=== PATIENT | male | born 1945 | race Caucasian/White ===

== ENCOUNTER 2017-05-27 06:55 | Day surgery (SDC) | payer MEDICARE, BC ==
[~2017-05-27 06:55] MED LIST: Lactated Ringers 1,000 ML IV SCH; Lidocaine 1%/Sod Bicarbonate in NS 8.4% 1 ML Syringe IV PRN; Sodium Chloride 0.9% 10 ML Syringe FLUSH PRN
[2017-05-27] MEDS ORDERED: Cyclobenzaprine 10 MG Tab PO PRN (06:59)
[2017-05-27] MEDS ORDERED: Sennosides 8.6 MG Tab PO PRN (06:59)
[2017-05-27] MEDS ORDERED: Magnesium Hydroxide 400 MG/5 ML Susp 30 ML Cup PO PRN (06:59)
[2017-05-27] MEDS ORDERED: diphenhydrAMINE 50 MG/ML SDV IVPUSH PRN (06:59)
[2017-05-27] MEDS ORDERED: Ondansetron 4 MG/2 ML SDV IVPUSH PRN ×2 (06:59→10:12)
[2017-05-27] MEDS ORDERED: Naloxone 0.4 MG/ML SDV IVPUSH PRN (06:59)
[2017-05-27] MEDS ORDERED: Morphine 2 MG/ML Syringe IVPUSH PRN (06:59)
[2017-05-27] MEDS ORDERED: Bisacodyl 5 MG Tab PO PRN (06:59)
[2017-05-27] MEDS ORDERED: ceFAZolin 1 GM Vial ONE (07:17)
[2017-05-27] MEDS ORDERED: Propofol 200 MG/20 ML SDV ONE (07:17)
[2017-05-27] MEDS ORDERED: Midazolam 1 MG/ML 2 ML SDV ONE (07:17)
[2017-05-27] MEDS ORDERED: fentaNYL 100 MCG/2 ML SDV ONE (07:17)
[2017-05-27] MEDS ORDERED: Morphine PF 1 MG/ML Amp ONE (07:47)
--- NOTE | 2017-05-27 07:52 | PCM.PREANE ---
Preanesthetic Assessment - Anesthesia/Transfusion/Family Hx Anesthesia History: Prior Anesthesia Without Reaction Family History of Anesthesia Reaction: No Transfusion History: No Prior Transfusion(s) - Review of Systems General: No Symptoms Pulmonary: No Symptoms, Other (smokeless tobacco) Cardiovascular: No Symptoms Gastrointestinal: No Symptoms Neurological: Tingling (tingling in hands on occassion) Other: Reports: None - Physical Assessment NPO Status Date: 05/26/17 NPO Status Time: 18:00 Pulse: 56 O2 Sat by Pulse Oximetry: 98 Respiratory Rate: 16 Blood Pressure: 143/86 Temperature: 36.7 C Height: 1.8 m ASA Class: 2 Mental Status: Alert & Oriented x3 Airway Class: Mallampati = 2 Dentition: Reports: Broken Tooth/Teeth Thyro-Mental Finger Breadths: 3 Mouth Opening Finger Breadths: 3 ROM/Head Extension: Full Lungs: Clear to Auscultation, Normal Respiratory Effort Cardiovascular: Regular Rate, Regular Rhythm - Lab Values: Laboratory Last Values MRSA (PCR) Negative 05/08/17 14:00 - Allergies Allergies/Adverse Reactions: Allergies Allergy/AdvReac Type Severity Reaction Status Date / Time No Known Allergies Allergy Verified 05/24/17 11:11 - Blood Blood Available: No Product(s) Available: None - Anesthesia Plan Pre-Op Medication Ordered: None - Acknowledgements Anesthesia Type Planned: Spinal, MAC Pt an Appropriate Candidate for the Planned Anesthesia: Yes Alternatives and Risks of Anesthesia Discussed w Pt/Guardian: Yes Pt/Guardian Understands and Agrees with Anesthesia Plan: Yes PreAnesthesia Questionnaire HEENT History: Reports: Impaired Vision Cardiovascular History: Reports: None Respiratory History: Reports: None Gastrointestinal History: Reports: None Genitourinary History: Reports: None MAPPER History: Reports: None Other Musculoskeletal History: Pelvis FX. Dislocated elbow at age 11 Neurological History: Reports: None Psychiatric History: Reports: None Endocrine/Metabolic History: Reports: None Hematologic History: Reports: None Immunologic History: Reports: None Oncologic (Cancer) History: Reports: None Dermatologic History: Reports: None - Infectious Disease History Infectious Disease History: Reports: None - Past Surgical History Head Surgeries/Procedures: Reports: None HEENT Surgical History: Reports: None Cardiovascular Surgical History: Reports: None Respiratory Surgical History: Reports: None GI Surgical History: Reports: Hernia, Inguinal Female Surgical History: Reports: None Male Surgical History: Reports: None Endocrine Surgical History: Reports: None Neurological Surgical History: Reports: None Musculoskeletal Surgical History: Reports: Hip Replacement Other Musculoskeletal Surgeries/Procedures:: bilateral hip replacements Oncologic Surgical History: Reports: None Dermatological Surgical History: Reports: None - SUBSTANCE USE Smoking Status *Q: Current Every Day Smoker Tobacco Use Within Last Twelve Months: Snuff/Dip Second Hand Smoke Exposure: No Days Per Week of Alcohol Use: 0 Recreational Drug Use History: No - HOME MEDS Home Medications: Home Meds . [No Known Home Meds] 07/22/15 [History] - CURRENT (IN HOUSE) MEDS Current Meds: Current Medications Aspirin (Ecotrin) 325 mg PO BID [facility] Bisacodyl (Dulcolax) 5 mg PO DAILY PRN PRN Reason: Constipation Morphine Sulfate 8 mg/Epinephrine HCl 0.3 mg/Cefuroxime Sodium 750 mg/Ketorolac Tromethamine 30 mg/Sodium Chloride 27.9 ml 0 mg .XX ONETIME ONE Stop: 05/27/17 09:31 Cyclobenzaprine HCl (Flexeril) 10 mg PO TID PRN PRN Reason: Spasms Diphenhydramine HCl (Benadryl) 25 mg IVPUSH Q4H PRN PRN Reason: Nausea Docusate Sodium (Colace) 100 mg PO BID [facility] Famotidine (Pepcid) 20 mg PO Q12H [facility] Lactated Ringer's (Ringers, Lactated) 1,000 mls @ 125 mls/hr IV ASDIRECTED [facility] Cefazolin Sodium/Dextrose 2 gm (/ Premix) 50 mls @ 100 mls/hr IV Q8H [facility] Stop: 05/27/17 23:29 Ketorolac Tromethamine (Toradol) 15 mg IVPUSH Q6H PRN PRN Reason: Pain Lidocaine/Sodium Bicarbonate (Buffered Lidocaine 1% In Ns 8.4%) 0.25 ml IV ONETIME PRN PRN Reason: Prior to IV Start Magnesium Hydroxide (Milk Of Magnesia) 30 ml PO BID PRN PRN Reason: Constipation Morphine Sulfate (Morphine) 2 mg IVPUSH Q2H PRN PRN Reason: Breakthrough Pain Naloxone HCl (Narcan) 0.1 mg IVPUSH Q5M PRN PRN Reason: Oversedation Ondansetron HCl (Zofran) 4 mg IVPUSH Q6H PRN PRN Reason: Nausea/Vomiting Oxycodone/Acetaminophen (Percocet 325-5 Mg) 1 - 2 tab PO Q4H PRN PRN Reason: Pain Senna (Senna) 8.6 mg PO BID PRN PRN Reason: Constipation Sodium Chloride (Saline Flush) 10 ml FLUSH ASDIRECTED PRN PRN Reason: Keep Vein Open Discontinued Medications Cefazolin Sodium (Ancef) Confirm Administered Dose 2 gm .ROUTE .STK-MED ONE Stop: 05/27/17 07:18 Fentanyl (Sublimaze) Confirm Administered Dose 100 mcg .ROUTE .STK-MED ONE Stop: 05/27/17 07:18 Midazolam HCl (Versed 1 Mg/Ml) Confirm Administered Dose 2 mg .ROUTE .STK-MED ONE Stop: 05/27/17 07:18 Propofol (Diprivan 20 Ml) Confirm Administered Dose 400 mg .ROUTE .STK-MED ONE Stop: 05/27/17 07:18
[2017-05-27] MEDS: Iodine/Sodium Iodide 2% Tincture 30 ML Bottle ONE ×2 (09:17→09:47)
[2017-05-27] MEDS: Morphine 8 MG, EPINEPHrine 0.3 MG, Cefuroxime 750 MG, Ketorolac 30 MG, Sodium Chloride ... ONE ×10 (09:18→09:54)
[2017-05-27] MEDS: ceFAZolin 1 GM Vial ONE ×2 (09:18→09:50)
[2017-05-27] MEDS: Bupivacaine 0.25% 30 ML SDV ONE ×2 (09:19→09:55)
[2017-05-27] MEDS: Vancomycin 1 GM SDV ONE ×2 (09:22→09:58)
[2017-05-27] MEDS ORDERED: Lactated Ringers 1,000 ML ONE (09:57)
[2017-05-27] MEDS ORDERED: fentaNYL 100 MCG/2 ML SDV IVPUSH PRN (10:12)
[2017-05-27] MEDS ORDERED: HYDROmorphone 0.5 MG/0.5 ML Syringe IVPUSH PRN (10:12)
[2017-05-27] MEDS ORDERED: EPINEPHrine 1 MG/ML SDV ONE (10:34)
[2017-05-27] MEDS ORDERED: Ropivacaine 0.5% 5 MG/ML 30 ML SDV ONE (10:34)
--- NOTE | 2017-05-27 10:39 | PCM.POSTAN ---
POST ANESTHESIA ASSESSMENT - MENTAL STATUS Mental Status: Alert, Oriented - VITAL SIGNS Pulse Rate: 62 SaO2: 99 Resp Rate: 16 Blood Pressure: 114/82 Temperature: 36.7 C - RESPIRATORY Respiratory Status: Respiratory Rate WNL, Airway Patent, O2 Saturation Stable, Supplemental Oxygen - CARDIOVASCULAR CV Status: Pulse Rate WNL, Blood Pressure Stable - GASTROINTESTINAL GI Status: No Symptoms - PAIN Pain Score: 0 - POST OP HYDRATION Hydration Status: Adequate & Stable
--- NOTE | 2017-05-27 11:02 | CR ---
Right knee: AP and lateral views of the right knee were obtained. Comparison: No previous study. Recently placed right knee prosthesis is noted. Components are aligned. Underlying bony structures are intact. Soft tissue air is noted from the surgical procedure. Impression: 1. Satisfactory appearance of recently placed right knee prosthesis. Diagnostic code #2
--- NOTE | 2017-05-27 12:18 | PCM.SN ---
- Free Text/Narrative Note: Right selective femoral nerve block at the adductor canal for post-procedure pain control requested by Dr. Burris Time Out: 1048 Start: 1052 End: 1057 Chart reviewed. Consent signed. Questions answered. Appropriate monitors applied. Time out performed. Right mid-shaft femur evaluated with ultrasound. Scanning medially of the femur, I was able to identify the femoral artery in the adductor canal. The nerve bundle was lateral to the artery. The skin was prepped lateral to the ultrasound probe with chlorahexadine. The 21ga 4 insulated block needle was inserted under direct ultrasound guidance into the adductor canal. 25mL of 0.5% ropivacaine with 1:200,000 epinephrine was injected cirmcumferentially around the nerve with intermittent negative aspiration. Patient tolerated the procedure well. Please see the vital signs on nurses notes. Block completed in the PACU with spinal anesthetic still providing anesthesia. Génesis Quintero CRNA
[2017-05-27] MEDS: ceFAZolin 2 GM in Premix Bag 1 BAG IV SCH (15:02)
--- NOTE | 2017-05-27 17:35 | PCM.CONS ---
H&P History of Present Illness - General Date of Service: 05/27/17 Admit Problem/Dx: Admission Diagnosis/Problem Admission Diagnosis/Problem Osteoarthritis of knee Rt TKA Source of Information: Patient History Limitations: Reports: No Limitations - History of Present Illness Initial Comments - Free Text/Narative: Mauricio is a pleasant 71-year-old male seen this afternoon, status post right total knee arthroplasty with Dr. Christianson this morning. Pain is under excellent control, he states he has no pain at all. He has been up and ambulatory, did well. No nausea vomiting. States he ate a good lunch. Past medical history significant for osteoarthritis, osteopenia and tobacco use disorder. Hospitalist service is consulted for postoperative medical management. Patient is a full code, PCP is Demi rojas [place] Right Knee Pain Score (Numeric/FACES): 0 - Related Data Allergies/Adverse Reactions: Allergies Allergy/AdvReac Type Severity Reaction Status Date / Time No Known Allergies Allergy Verified 05/24/17 11:11 Home Medications: Home Meds . [No Known Home Meds] 07/22/15 [History] Past Medical History HEENT History: Reports: Impaired Vision Cardiovascular History: Reports: None Respiratory History: Reports: None Gastrointestinal History: Reports: None Genitourinary History: Reports: None [employer] History: Reports: None Other Musculoskeletal History: Pelvis FX. Dislocated elbow at age 11 Neurological History: Reports: None Psychiatric History: Reports: None Endocrine/Metabolic History: Reports: None Hematologic History: Reports: None Immunologic History: Reports: None Oncologic (Cancer) History: Reports: None Dermatologic History: Reports: None - Infectious Disease History Infectious Disease History: Reports: None - Past Surgical History Head Surgeries/Procedures: Reports: None HEENT Surgical History: Reports: None Cardiovascular Surgical History: Reports: None Respiratory Surgical History: Reports: None GI Surgical History: Reports: Hernia, Inguinal Female Surgical History: Reports: None Male Surgical History: Reports: None Endocrine Surgical History: Reports: None Neurological Surgical History: Reports: None Musculoskeletal Surgical History: Reports: Hip Replacement Other Musculoskeletal Surgeries/Procedures:: bilateral hip replacements Oncologic Surgical History: Reports: None Dermatological Surgical History: Reports: None Social & Family History - Tobacco Use Smoking Status *Q: Current Every Day Smoker Years of Tobacco use: 50 Packs/Tins Daily: 0.3 Second Hand Smoke Exposure: No - Caffeine Use Caffeine Use: Reports: Coffee - Alcohol Use Days Per Week of Alcohol Use: 0 - Recreational Drug Use Recreational Drug Use: No H&P Review of Systems - Review of Systems: Review Of Systems: See Below General: Reports: No Symptoms HEENT: Reports: No Symptoms Pulmonary: Reports: No Symptoms Cardiovascular: Reports: No Symptoms Gastrointestinal: Reports: No Symptoms Genitourinary: Reports: No Symptoms Musculoskeletal: Reports: Leg Pain (minimal to no rt knee pain) Neurological: Reports: No Symptoms Exam - Exam Exam: See Below - Vital Signs Vital Signs: Last Vital Signs Temp 98.4 F 05/27/17 11:30 Pulse 91 05/27/17 12:32 Resp 14 05/27/17 11:45 BP 124/89 05/27/17 12:32 Pulse Ox 87 L 05/27/17 12:11 Weight: 177 lb - Exam Quality Assessment: DVT Prophylaxis General: Alert, Oriented, Cooperative HEENT: Conjunctiva Clear, EOMI, Hearing Intact, Mucosa Moist & Bone Gap, Pupils Equal, PERRLA Neck: Supple Lungs: Clear to Auscultation, Normal Respiratory Effort Cardiovascular: Regular Rate, Regular Rhythm GI/Abdominal Exam: Normal Bowel Sounds, Soft, Non-Tender (Male) Exam: Deferred Rectal (Males) Exam: Deferred Back Exam: Normal Inspection Extremities: Normal Inspection, Other (zoran to lt leg, SCD's bilat, YVON wrap to rt leg/knee. CMS is + and = bilat) Peripheral Pulses: 2+: Dorsalis Pedis (L), Dorsalis Pedis (R) Neurological: Cranial Nerves Intact Neuro Extensive - Mental Status: Alert, Oriented x3, Normal Mood/Affect, Normal Cognition, Memory Intact Psychiatric: Alert, Normal Affect, Normal Mood Consult PN Assessment/Plan POD#: 0 Procedures: Procedures CHEST X-RAY 2VW FRONTAL&LATL (10/28/13) DXA BONE DENSITY AXIAL (05/08/17) EMERGENCY DEPT VISIT (07/22/15) X-RAY EXAM CHEST 2 VIEWS (05/08/17) X-RAY EXAM OF ELBOW (07/22/15) X-RAY EXAM OF HUMERUS (10/28/13) (1) S/P total knee arthroplasty SNOMED Code(s): 5463080426791, 6445654831050 Code(s): Z96.659 - PRESENCE OF UNSPECIFIED ARTIFICIAL KNEE JOINT Priority: High Current Visit: Yes Qualifiers: Laterality: right Qualified Code(s): Z96.651 - Presence of right artificial knee joint (2) Osteoarthritis SNOMED Code(s): 266542464 Code(s): M19.90 - UNSPECIFIED OSTEOARTHRITIS, UNSPECIFIED SITE Priority: High Current Visit: Yes Qualifiers: Osteoarthritis location: knee Osteoarthritis type: primary Laterality: right Qualified Code(s): M17.11 - Unilateral primary osteoarthritis, right knee (3) Osteoporosis SNOMED Code(s): 62310597 Code(s): M81.0 - AGE-RELATED OSTEOPOROSIS W/O CURRENT PATHOLOGICAL FRACTURE Priority: Medium Current Visit: No (4) Tobacco use disorder SNOMED Code(s): 942357487 Code(s): F17.200 - NICOTINE DEPENDENCE, UNSPECIFIED, UNCOMPLICATED Priority : High Current Visit: Yes Problem List Initiated/Reviewed/Updated: Yes Plan: I/P: S/P total right knee arthroplasty, POD # 0, Dr. Burris - Pain management and DVT prophylax - PT/OT - RT/IS - Hgb 16.2, preoperative value Chronic conditions: Osteoarthritis, treatment as above Osteoporosis Tobacco use disorder Other: GI Prophylax CM/SW for DC planning- plans are for discharge home with sister he is hopeful for tomorrow Patient is full Code status. PCP is Demi MCKEE in [place]
[2017-05-27] MEDS: Docusate Sodium 100 MG Cap PO SCH (20:56)
[2017-05-27] MEDS: Famotidine 20 MG Tab PO SCH (20:56)
[2017-05-28] MEDS: Morphine 8 MG, EPINEPHrine 0.3 MG, Cefuroxime 750 MG, Ketorolac 30 MG, Sodium Chloride ... ONE ×5 (00:02)
[2017-05-28] MEDS: ceFAZolin 2 GM in Premix Bag 1 BAG IV SCH ×2 (00:03→07:23)
[2017-05-28] MEDS: Acetaminophen/oxyCODONE 325-5 MG Tab PO PRN ×3 (00:07→10:51)
[2017-05-28] MEDS: Ketorolac 15 MG/ML SDV IVPUSH PRN ×3 (00:09→13:27)
[2017-05-28] MEDS: Famotidine 20 MG Tab PO SCH (08:45)
[2017-05-28] MEDS: Docusate Sodium 100 MG Cap PO SCH (08:46)
--- NOTE | 2017-05-28 08:52 | PCM48HPAN ---
Post Anesthesia Note - EVALUATION WITHIN 48HRS OF ANESTHETIC Vital Signs in Normal Range: Yes Patient Participated in Evaluation: Yes Respiratory Function Stable: Yes Airway Patent: Yes Cardiovascular Function Stable: Yes Hydration Status Stable: Yes Pain Control Satisfactory: Yes Nausea and Vomiting Control Satisfactory: Yes Mental Status Recovered: Yes
[2017-05-28] MEDS ORDERED: Aspirin 325 MG Tab.EC PO SCH (09:00)
--- NOTE | 2017-05-28 09:16 | PCM.CONSN ---
- General Info Date of Service: 05/28/17 Admission Dx/Problem (Free Text): Admission Diagnosis/Problem Admission Diagnosis/Problem Osteoarthritis of knee Rt TKA, POD #1 Doing well, pain controlled, no nausea Voiding, eating, ambulating. Plans DC home today Functional Status: Reports: Pain Controlled, Tolerating Diet, Ambulating, Urinating, Incentive Spirometry - Review of Systems General: Reports: No Symptoms HEENT: Reports: No Symptoms Pulmonary: Reports: No Symptoms Cardiovascular: Reports: No Symptoms Gastrointestinal: Reports: No Symptoms Genitourinary: Reports: No Symptoms Musculoskeletal: Reports: Leg Pain Skin: Reports: No Symptoms Neurological: Reports: No Symptoms Psychiatric: Reports: No Symptoms - Patient Data Vitals - Most Recent: Last Vital Signs Temp 98.4 F 05/27/17 11:30 Pulse 56 L 05/27/17 16:39 Resp 16 05/27/17 19:00 BP 131/104 H 05/27/17 16:32 Pulse Ox 95 05/27/17 19:00 Weight - Most Recent: 177 lb I&O - Last 24 Hours: Intake & Output 05/27/17 05/28/17 05/28/17 22:59 06:59 14:59 Intake Total 1220 Output Total 200 Balance 1020 Lab Results Last 24 Hours: Laboratory Results - last 24 hr 05/28/17 05/28/17 Range/Units 05:31 05:31 WBC 5.37 (4.23-9.07) K/mm3 RBC 4.70 (4.63-6.08) M/mm3 Hgb 13.6 L (13.7-17.5) gm/L Hct 40.5 (40.1-51.0) % MCV 86.2 (79.0-92.2) fl MCH 28.9 (25.7-32.2) pg MCHC 33.6 (32.2-35.5) g/dl RDW Std Deviation 41.7 (35.1-43.9) fL Plt Count 189 (163-337) K/mm3 MPV 9.5 (9.4-12.3) fl Sodium 139 (136-145) mEq/L Potassium 4.5 (3.5-5.1) mEq/L Chloride 104 (98-107) mEq/L Carbon Dioxide 29 (21-32) mEq/L Anion Gap 10.5 (5-15) BUN 18 (7-18) mg/dL Creatinine 0.9 (0.7-1.3) mg/dL Est Cr Clr Drug Dosing 81.34 mL/min Estimated GFR (MDRD) > 60 (>60) mL/min BUN/Creatinine Ratio 20.0 H (14-18) Glucose 98 (80-115) mg/dL Calcium 8.7 (8.5-10.1) mg/dL Total Bilirubin 0.8 (0.2-1.0) mg/dL AST 14 L (15-37) U/L ALT 18 (16-63) U/L Alkaline Phosphatase 61 (46-116) U/L Total Protein 6.0 L (6.4-8.2) g/dl Albumin 3.0 L (3.4-5.0) g/dl Globulin 3.0 gm/dL Albumin/Globulin Ratio 1.0 (1-2) Med Orders - Current: Current Medications Aspirin (Ecotrin) 325 mg PO BID [facility] Last Admin: 05/28/17 08:45 Dose: 325 mg Bisacodyl (Dulcolax) 5 mg PO DAILY PRN PRN Reason: Constipation Cyclobenzaprine HCl (Flexeril) 10 mg PO TID PRN PRN Reason: Spasms Last Admin: 05/28/17 08:46 Dose: 10 mg Diphenhydramine HCl (Benadryl) 25 mg IVPUSH Q4H PRN PRN Reason: Nausea Docusate Sodium (Colace) 100 mg PO BID [facility] Last Admin: 05/28/17 08:46 Dose: 100 mg Famotidine (Pepcid) 20 mg PO Q12H [facility] Last Admin: 05/28/17 08:45 Dose: 20 mg Ketorolac Tromethamine (Toradol) 15 mg IVPUSH Q6H PRN PRN Reason: Pain Last Admin: 05/28/17 06:01 Dose: 15 mg Magnesium Hydroxide (Milk Of Magnesia) 30 ml PO BID PRN PRN Reason: Constipation Morphine Sulfate (Morphine) 2 mg IVPUSH Q2H PRN PRN Reason: Breakthrough Pain Naloxone HCl (Narcan) 0.1 mg IVPUSH Q5M PRN PRN Reason: Oversedation Ondansetron HCl (Zofran) 4 mg IVPUSH Q6H PRN PRN Reason: Nausea/Vomiting Oxycodone/Acetaminophen (Percocet 325-5 Mg) 1 - 2 tab PO Q4H PRN PRN Reason: Pain Last Admin: 05/28/17 06:00 Dose: 2 tab Senna (Senna) 8.6 mg PO BID PRN PRN Reason: Constipation Sodium Chloride (Saline Flush) 10 ml FLUSH ASDIRECTED PRN PRN Reason: Keep Vein Open Discontinued Medications Bupivacaine HCl (Marcaine 0.25%) Confirm Administered Dose 30 ml .ROUTE .STK- MED ONE Stop: 05/27/17 08:13 Last Admin: 05/27/17 09:55 Dose: 30 ml Cefazolin Sodium (Ancef) Confirm Administered Dose 2 gm .ROUTE .STK-MED ONE Stop: 05/27/17 07:18 Cefazolin Sodium (Ancef) Confirm Administered Dose 2 gm .ROUTE .STK-MED ONE Stop: 05/27/17 08:12 Last Admin: 05/27/17 09:50 Dose: 2 gm Morphine Sulfate 8 mg/Epinephrine HCl 0.3 mg/Cefuroxime Sodium 750 mg/Ketorolac Tromethamine 30 mg/Sodium Chloride 27.9 ml 0 mg .XX ONETIME ONE Stop: 05/27/17 09:31 Last Admin: 05/28/17 00:02 Dose: Not Given Epinephrine HCl (Adrenalin) Confirm Administered Dose 1 mg .ROUTE .STK-MED ONE Stop: 05/27/17 10:35 Fentanyl (Sublimaze) Confirm Administered Dose 100 mcg .ROUTE .STK-MED ONE Stop: 05/27/17 07:18 Fentanyl (Sublimaze) 50 mcg IVPUSH Q5M PRN PRN Reason: pain Stop: 05/27/17 13:00 Hydromorphone HCl (Dilaudid) 0.5 mg IVPUSH Q15M PRN PRN Reason: Pain (severe 7-10) Stop: 05/27/17 13:00 Lactated Ringer's (Ringers, Lactated) 1,000 mls @ 125 mls/hr IV ASDIRECTED [facility] Last Admin: 05/27/17 07:30 Dose: 125 mls/hr Cefazolin Sodium/Dextrose 2 gm (/ Premix) 50 mls @ 100 mls/hr IV Q8H [facility] Stop: 05/28/17 07:59 Last Admin: 05/28/17 07:23 Dose: 100 mls/hr Lactated Ringer's (Ringers, Lactated) Confirm Administered Dose 1,000 mls @ as directed .ROUTE .ST-MED ONE Stop: 05/27/17 09:58 Iodine (Iodine 2% Mild Tincture) Confirm Administered Dose 30 ml .ROUTE .STK- MED ONE Stop: 05/27/17 08:13 Last Admin: 05/27/17 09:47 Dose: 18 ml Lidocaine/Sodium Bicarbonate (Buffered Lidocaine 1% In Ns 8.4%) 0.25 ml IV ONETIME PRN PRN Reason: Prior to IV Start Last Admin: 05/27/17 07:29 Dose: 0.25 ml Midazolam HCl (Versed 1 Mg/Ml) Confirm Administered Dose 2 mg .ROUTE .ST-MED ONE Stop: 05/27/17 07:18 Morphine Sulfate (Duramorph Pf) Confirm Administered Dose 1 mg .ROUTE .ST-MED ONE Stop: 05/27/17 07:48 Ondansetron HCl (Zofran) 4 mg IVPUSH ONETIME PRN PRN Reason: Nausea/Vomiting Stop: 05/27/17 13:00 Propofol (Diprivan 20 Ml) Confirm Administered Dose 400 mg .ROUTE .STK-MED ONE Stop: 05/27/17 07:18 Ropivacaine (Naropin 0.5%) Confirm Administered Dose 30 ml .ROUTE .STK-MED ONE Stop: 05/27/17 10:35 Tranexamic Acid (Cyklokapron) Confirm Administered Dose 1,000 mg .ROUTE .ST- MED ONE Stop: 05/27/17 08:12 Last Admin: 05/27/17 10:02 Dose: 1,000 mg Vancomycin HCl (Vancomycin) Confirm Administered Dose 1 gm .ROUTE .STK-MED ONE Stop: 05/27/17 08:12 Last Admin: 05/27/17 09:58 Dose: 1 gm - Exam Quality Assessment: DVT Prophylaxis General: Alert, Oriented, Cooperative, No Acute Distress HEENT: Pupils Equal, EOMI, Mucous Membr. Moist/[place] Neck: Supple Lungs: Clear to Auscultation, Normal Respiratory Effort Cardiovascular: Regular Rate, Regular Rhythm GI/Abdominal Exam: Normal Bowel Sounds, Soft, Non-Tender (Male) Exam: Deferred Extremities: Other (teds, SCD's and ice to knee) Peripheral Pulses: 2+: Dorsalis Pedis (L), Dorsalis Pedis (R) Neurological: No New Focal Deficit Psy/Mental Status: Alert, Normal Affect, Normal Mood Consult PN Assessment/Plan POD#: 1 Procedures: Procedures CHEST X-RAY 2VW FRONTAL&LATL (10/28/13) DXA BONE DENSITY AXIAL (05/08/17) EMERGENCY DEPT VISIT (07/22/15) X-RAY EXAM CHEST 2 VIEWS (05/08/17) X-RAY EXAM OF ELBOW (07/22/15) X-RAY EXAM OF HUMERUS (10/28/13) (1) S/P total knee arthroplasty SNOMED Code(s): 8635004237706, 5397561628360 Code(s): Z96.659 - PRESENCE OF UNSPECIFIED ARTIFICIAL KNEE JOINT Priority: High Current Visit: Yes Qualifiers: Laterality: right Qualified Code(s): Z96.651 - Presence of right artificial knee joint (2) Osteoarthritis SNOMED Code(s): 293528661 Code(s): M19.90 - UNSPECIFIED OSTEOARTHRITIS, UNSPECIFIED SITE Priority: High Current Visit: Yes Qualifiers: Osteoarthritis location: knee Osteoarthritis type: primary Laterality: right Qualified Code(s): M17.11 - Unilateral primary osteoarthritis, right knee (3) Osteoporosis SNOMED Code(s): 94362177 Code(s): M81.0 - AGE-RELATED OSTEOPOROSIS W/O CURRENT PATHOLOGICAL FRACTURE Priority: Medium Current Visit: No (4) Tobacco use disorder SNOMED Code(s): 524926563 Code(s): F17.200 - NICOTINE DEPENDENCE, UNSPECIFIED, UNCOMPLICATED Priority : High Current Visit: Yes Problem List Initiated/Reviewed/Updated: Yes Plan: I/P: S/P total right knee arthroplasty, POD # 1, Dr. Burris - Pain management and DVT prophylax - PT/OT - RT/IS - Hgb 16.2, preoperative value--->13.6 -VSS Chronic conditions: Osteoarthritis, treatment as above Osteoporosis Tobacco use disorder Other: GI Prophylax CM/SW for DC planning- plans are for discharge home with sister today. Patient is OK for DC home from Hospitalist standpoint. Patient is full Code status. PCP is Demi MCKEE in [place]
[2017-05-28 12:06] VITALS: BP 123/95
--- NOTE | 2017-05-28 12:54 | PCM.SURGPN ---
- General Info Date of Service: 05/28/17 POD#: 1 Functional Status: Reports: Pain Controlled, Tolerating Diet, Ambulating, Urinating, Incentive Spirometry - Review of Systems Musculoskeletal: Reports: Other (The pt reports his pain is controlled.) - Patient Data Vitals - Most Recent: Last Vital Signs Temp 97.5 F 05/28/17 11:51 Pulse 56 L 05/28/17 11:51 Resp 19 05/28/17 11:51 BP 123/95 H 05/28/17 11:51 Pulse Ox 95 05/28/17 11:51 Weight - Most Recent: 177 lb I&O - Last 24 Hours: Intake & Output 05/27/17 05/28/17 05/28/17 22:59 06:59 14:59 Intake Total 1220 180 Output Total 200 Balance 1020 180 Lab Results Last 24 Hrs: Laboratory Results - last 24 hr 05/28/17 05/28/17 Range/Units 05:31 05:31 WBC 5.37 (4.23-9.07) K/mm3 RBC 4.70 (4.63-6.08) M/mm3 Hgb 13.6 L (13.7-17.5) gm/L Hct 40.5 (40.1-51.0) % MCV 86.2 (79.0-92.2) fl MCH 28.9 (25.7-32.2) pg MCHC 33.6 (32.2-35.5) g/dl RDW Std Deviation 41.7 (35.1-43.9) fL Plt Count 189 (163-337) K/mm3 MPV 9.5 (9.4-12.3) fl Sodium 139 (136-145) mEq/L Potassium 4.5 (3.5-5.1) mEq/L Chloride 104 (98-107) mEq/L Carbon Dioxide 29 (21-32) mEq/L Anion Gap 10.5 (5-15) BUN 18 (7-18) mg/dL Creatinine 0.9 (0.7-1.3) mg/dL Est Cr Clr Drug Dosing 81.34 mL/min Estimated GFR (MDRD) > 60 (>60) mL/min BUN/Creatinine Ratio 20.0 H (14-18) Glucose 98 (80-115) mg/dL Calcium 8.7 (8.5-10.1) mg/dL Total Bilirubin 0.8 (0.2-1.0) mg/dL AST 14 L (15-37) U/L ALT 18 (16-63) U/L Alkaline Phosphatase 61 (46-116) U/L Total Protein 6.0 L (6.4-8.2) g/dl Albumin 3.0 L (3.4-5.0) g/dl Globulin 3.0 gm/dL Albumin/Globulin Ratio 1.0 (1-2) Med Orders - Current: Current Medications Aspirin (Ecotrin) 325 mg PO BID PENDING SALE TO [facility] Last Admin: 05/28/17 08:45 Dose: 325 mg Bisacodyl (Dulcolax) 5 mg PO DAILY PRN PRN Reason: Constipation Cyclobenzaprine HCl (Flexeril) 10 mg PO TID PRN PRN Reason: Spasms Last Admin: 05/28/17 08:46 Dose: 10 mg Diphenhydramine HCl (Benadryl) 25 mg IVPUSH Q4H PRN PRN Reason: Nausea Docusate Sodium (Colace) 100 mg PO BID PENDING SALE TO [facility] Last Admin: 05/28/17 08:46 Dose: 100 mg Famotidine (Pepcid) 20 mg PO Q12H PENDING SALE TO [facility] Last Admin: 05/28/17 08:45 Dose: 20 mg Ketorolac Tromethamine (Toradol) 15 mg IVPUSH Q6H PRN PRN Reason: Pain Last Admin: 05/28/17 06:01 Dose: 15 mg Magnesium Hydroxide (Milk Of Magnesia) 30 ml PO BID PRN PRN Reason: Constipation Morphine Sulfate (Morphine) 2 mg IVPUSH Q2H PRN PRN Reason: Breakthrough Pain Naloxone HCl (Narcan) 0.1 mg IVPUSH Q5M PRN PRN Reason: Oversedation Ondansetron HCl (Zofran) 4 mg IVPUSH Q6H PRN PRN Reason: Nausea/Vomiting Oxycodone/Acetaminophen (Percocet 325-5 Mg) 1 - 2 tab PO Q4H PRN PRN Reason: Pain Last Admin: 05/28/17 10:51 Dose: 2 tab Senna (Senna) 8.6 mg PO BID PRN PRN Reason: Constipation Sodium Chloride (Saline Flush) 10 ml FLUSH ASDIRECTED PRN PRN Reason: Keep Vein Open Discontinued Medications Bupivacaine HCl (Marcaine 0.25%) Confirm Administered Dose 30 ml .ROUTE .STK- MED ONE Stop: 05/27/17 08:13 Last Admin: 05/27/17 09:55 Dose: 30 ml Cefazolin Sodium (Ancef) Confirm Administered Dose 2 gm .ROUTE .STK-MED ONE Stop: 05/27/17 07:18 Cefazolin Sodium (Ancef) Confirm Administered Dose 2 gm .ROUTE .STK-MED ONE Stop: 05/27/17 08:12 Last Admin: 05/27/17 09:50 Dose: 2 gm Morphine Sulfate 8 mg/Epinephrine HCl 0.3 mg/Cefuroxime Sodium 750 mg/Ketorolac Tromethamine 30 mg/Sodium Chloride 27.9 ml 0 mg .XX ONETIME ONE Stop: 05/27/17 09:31 Last Admin: 05/28/17 00:02 Dose: Not Given Epinephrine HCl (Adrenalin) Confirm Administered Dose 1 mg .ROUTE .STK-MED ONE Stop: 05/27/17 10:35 Fentanyl (Sublimaze) Confirm Administered Dose 100 mcg .ROUTE .STK-MED ONE Stop: 05/27/17 07:18 Fentanyl (Sublimaze) 50 mcg IVPUSH Q5M PRN PRN Reason: pain Stop: 05/27/17 13:00 Hydromorphone HCl (Dilaudid) 0.5 mg IVPUSH Q15M PRN PRN Reason: Pain (severe 7-10) Stop: 05/27/17 13:00 Lactated Ringer's (Ringers, Lactated) 1,000 mls @ 125 mls/hr IV ASDIRECTED PENDING SALE TO [facility] Last Admin: 05/27/17 07:30 Dose: 125 mls/hr Cefazolin Sodium/Dextrose 2 gm (/ Premix) 50 mls @ 100 mls/hr IV Q8H PENDING SALE TO [facility] Stop: 05/28/17 07:59 Last Admin: 05/28/17 07:23 Dose: 100 mls/hr Lactated Ringer's (Ringers, Lactated) Confirm Administered Dose 1,000 mls @ as directed .ROUTE .STK-MED ONE Stop: 05/27/17 09:58 Iodine (Iodine 2% Mild Tincture) Confirm Administered Dose 30 ml .ROUTE .STK- MED ONE Stop: 05/27/17 08:13 Last Admin: 05/27/17 09:47 Dose: 18 ml Lidocaine/Sodium Bicarbonate (Buffered Lidocaine 1% In Ns 8.4%) 0.25 ml IV ONETIME PRN PRN Reason: Prior to IV Start Last Admin: 05/27/17 07:29 Dose: 0.25 ml Midazolam HCl (Versed 1 Mg/Ml) Confirm Administered Dose 2 mg .ROUTE .STK-MED ONE Stop: 05/27/17 07:18 Morphine Sulfate (Duramorph Pf) Confirm Administered Dose 1 mg .ROUTE .STK-MED ONE Stop: 05/27/17 07:48 Ondansetron HCl (Zofran) 4 mg IVPUSH ONETIME PRN PRN Reason: Nausea/Vomiting Stop: 05/27/17 13:00 Propofol (Diprivan 20 Ml) Confirm Administered Dose 400 mg .ROUTE .STK-MED ONE Stop: 05/27/17 07:18 Ropivacaine (Naropin 0.5%) Confirm Administered Dose 30 ml .ROUTE .STK-MED ONE Stop: 05/27/17 10:35 Tranexamic Acid (Cyklokapron) Confirm Administered Dose 1,000 mg .ROUTE .STK- MED ONE Stop: 05/27/17 08:12 Last Admin: 05/27/17 10:02 Dose: 1,000 mg Vancomycin HCl (Vancomycin) Confirm Administered Dose 1 gm .ROUTE .STK-MED ONE Stop: 05/27/17 08:12 Last Admin: 05/27/17 09:58 Dose: 1 gm - Exam Wound/Incisions: Dressing Dry and Intact General: Alert, Cooperative, No Acute Distress Lungs: Normal Respiratory Effort Extremities: Other (NVS intact for RLE. Zulma's negative. Approx 80 degrees flexion noted at right knee.) - Problem List Review Problem List Initiated/Reviewed/Updated: Yes - My Orders Last 24 Hours: Active Orders 24 hr Category Date Time Status Aspirin [Ecotrin] Med 05/28/17 09:00 Active 325 mg PO BID Docusate Sodium [Colace] Med 05/27/17 21:00 Active 100 mg PO BID Famotidine [Pepcid] Med 05/27/17 21:00 Active 20 mg PO Q12H Pulse Oximetry Continuous Monitoring [OM.PC] Routine Oth 05/27/17 16:36 Active Medication Orders Aspirin (Ecotrin) 325 mg PO BID PENDING SALE TO [facility] Last Admin: 05/28/17 08:45 Dose: 325 mg Bisacodyl (Dulcolax) 5 mg PO DAILY PRN PRN Reason: Constipation Cyclobenzaprine HCl (Flexeril) 10 mg PO TID PRN PRN Reason: Spasms Last Admin: 05/28/17 08:46 Dose: 10 mg Diphenhydramine HCl (Benadryl) 25 mg IVPUSH Q4H PRN PRN Reason: Nausea Docusate Sodium (Colace) 100 mg PO BID PENDING SALE TO [facility] Last Admin: 05/28/17 08:46 Dose: 100 mg Admin: 05/27/17 20:56 Dose: 100 mg Famotidine (Pepcid) 20 mg PO Q12H PENDING SALE TO [facility] Last Admin: 05/28/17 08:45 Dose: 20 mg Admin: 05/27/17 20:56 Dose: 20 mg Ketorolac Tromethamine (Toradol) 15 mg IVPUSH Q6H PRN PRN Reason: Pain Last Admin: 05/28/17 06:01 Dose: 15 mg Admin: 05/28/17 00:09 Dose: 15 mg Magnesium Hydroxide (Milk Of Magnesia) 30 ml PO BID PRN PRN Reason: Constipation Morphine Sulfate (Morphine) 2 mg IVPUSH Q2H PRN PRN Reason: Breakthrough Pain Naloxone HCl (Narcan) 0.1 mg IVPUSH Q5M PRN PRN Reason: Oversedation Ondansetron HCl (Zofran) 4 mg IVPUSH Q6H PRN PRN Reason: Nausea/Vomiting Oxycodone/Acetaminophen (Percocet 325-5 Mg) 1 - 2 tab PO Q4H PRN PRN Reason: Pain Last Admin: 05/28/17 10:51 Dose: 2 tab Admin: 05/28/17 06:00 Dose: 2 tab Admin: 05/28/17 00:07 Dose: 2 tab Senna (Senna) 8.6 mg PO BID PRN PRN Reason: Constipation Sodium Chloride (Saline Flush) 10 ml FLUSH ASDIRECTED PRN PRN Reason: Keep Vein Open - Assessment Assessment (Free Text/Narrative):: POD#1 - right TKA - Plan Plan (Free Text/Narrative):: 1. Hgb 13.6 today. 2. 325mg ASA BID. Frequent mobility, TEDs. 3. Discharge to home today. 4. Outpatient P.T. The pt's case was discussed with Dr. Burris today.
--- NOTE | 2017-05-31 11:11 | PCM.OPNOTE ---
- General Post-Op/Procedure Note Date of Surgery/Procedure: 05/27/17 Operative Procedure(s): right total knee arthroplasty Pre Op Diagnosis: right knee osteoarthrosis Post-Op Diagnosis: Same Anesthesia Technique: Local, MAC, Spinal Primary Surgeon: Anil Burris Anesthesia Provider: Miriam Mcdonnell Orthophoto Tech/Draftsman: Jaclyn Vieira Orthophoto Tech/Draftsman: Joanne Delgado in mLs: 5 Complications: None Condition: Good
--- NOTE | 2017-05-31 11:33 | OR ---
DATE OF OPERATION: 05/27/2017 SURGEON: Anil Burris MD OPERATION PERFORMED: Right total knee arthroplasty. PREOPERATIVE DIAGNOSIS: Right knee osteoarthrosis. POSTOPERATIVE DIAGNOSIS: Right knee osteoarthrosis. ANESTHESIA: Local MAC with spinal. ANESTHESIA PROVIDER: Miriam Mcdonnell. INSTITUTE SCIENTIST: Jaclyn Vieira PA-C, and Joanne Delgado LPN. ESTIMATED BLOOD LOSS: 5 mL. COMPLICATIONS: None. CONDITION: Stable. IMPLANTS: 1. Pala size 6 PS femur. 2. Pala size 6 [place] tibial base plate. 3. Leydi size 6, 9 mm PS X3 polyethylene. 4. Pala size 32 x 10 mm asymmetric patella. DESCRIPTION OF PROCEDURE: The patient was identified in the preop holding area. Proper site was marked and identified by the surgeon. The patient was taken back to the operating theater. After adequate anesthesia, the patient's right lower extremity had a nonsterile tourniquet applied and it was then sterilely prepped and draped in the usual sterile fashion. OR timeout was performed. The patient received 2 g IV Ancef. At this time, right lower extremity was exsanguinated. Tourniquet was insufflated to 300 mmHg. Standard medial parapatellar incision was made. Medial parapatellar arthrotomy was created. Deep fibers of the MCL were raised and anterior fat pad was resected. At this time, attention was turned to the patella. Patella measured 24, it was resected to a 14 for a 32 x 10 mm patella. Drill holes were then drilled and found to be in adequate position. The drill was then drilled in the distal femur and the intramedullary distal femoral cutting guide was then placed. 10 mm was resected off the distal femur and was found to be an adequate resection. Sizing guide was placed. It was found to be a size 6 PS femur that was shown on the implant record at the beginning of this dictation. The drill holes were drilled for the epicondylar axis using [place] line and epicondyles as reference. At this time, the 4-in-1 cutting block was placed. An anterior posterior and anterior and posterior chamfer cuts were then completed. The correct size box cut was then placed and the box cut was completed and found to be an adequate resection. Attention was turned to the tibia. The posterior medial lateral retractors were placed. The extramedullary tibial guide was placed. It was placed in the old footprint of the ACL. It was aligned with the center of the ankle and 0 degrees of slope, 9 mm was then resected off the unaffected lateral side. There was found to be an acceptable reduction. At this time, posterior osteophytes were removed along with medial and lateral meniscus. A trial implant was placed with a correct sized tibia that was mentioned at the beginning of the dictation. A Leydi size 6, 9 mm PS X3 polyethylene was then placed. The patient's knee was brought through range of motion. The patella was tracking centrally and was stable to varus and valgus stress. Alignment was found to be roughly at 0 degrees. At this time, cement was mixed on the back table. The tibia was stamped and drilled in proper rotation. All cut surfaces were irrigated with pulse lavage irrigation with Ancef and then completely dried. Once this was completed, then the cement was ready. The universal tibial base plate was cemented in place. Next, the Leydi size 6, PS femur cemented into place and the Pala size 6, 9 mm PS X3 polyethylene was placed. The patient's knee was brought into full extension. Excess cement was removed. The patella was then cemented in place at this time. Tourniquet was deflated. One liter dilute Betadine solution was irrigated through the knee along with 3 L of pulse lavage irrigation with Ancef. Periarticular injection was then completed. The patient's knee was brought through a range of motion. Once the cement had time to set up and it was found to be stable to varus valgus stress, the patella was tracking centrally with full range of motion. At this time, a #2 barbed suture was used for closure of the medial parapatellar arthrotomy. Topical tranexamic acid was placed. 2-0 Vicryl was used subcutaneously, a running 3-0 Monocryl was used subcuticularly. The patient tolerated the procedure well and was sent to the PACU in stable condition. MMODAL /[id number]
== END 2017-05-28 13:50 | disposition home or self-care (01) ==
LOC: JD.SDS 06:55 → JD.MS 07:01 → EDSTATUS 08:00 → JD.SDS 05-28 13:50
PROVIDERS: ATTEND Orthopaedic Surgery
DX: M17.11 Unilateral primary osteoarthritis, right knee (principal); Z79.2 Long term (current) use of antibiotics; F17.210 Nicotine dependence, cigarettes, uncomplicated; M25.561 Pain in right knee
CPT/HCPCS: 27447; 36415; 64450; 73560; 80053; 85027; 87641; 94762; 97110; 97116; 97162; 97165; 97535; A9270; C1713; C1776; J0171; J0690; J0697; J1885; J2250; J2270; J2274; J2795; J3370; J3490; J7120; 01402; J2704; J3010

== ENCOUNTER 2023-05-16 08:00 | Day surgery (SDC) | payer MEDICARE, BC ==
[~2023-05-16 08:00] MED LIST changes: +Bupivacaine 0.25% 10 ML SDV ONE; -Lidocaine 1%/Sod Bicarbonate in NS 8.4% 1 ML Syringe IV PRN; +Sodium Chloride 0.9% 10 ML Syringe FLUSH SCH
[2023-05-16] MEDS ORDERED: Propofol 200 MG/20 ML SDV ONE (08:41)
[2023-05-16] MEDS ORDERED: fentaNYL 100 MCG/2 ML SDV ONE (08:41)
[2023-05-16] MEDS ORDERED: Midazolam 1 MG/ML 2 ML SDV ONE (08:41)
[2023-05-16] MEDS ORDERED: Lidocaine 2% 5 ML SDV ONE (08:49)
[2023-05-16] MEDS ORDERED: Ondansetron 4 MG/2 ML SDV IVPUSH PRN (09:06)
[2023-05-16] MEDS ORDERED: HYDROmorphone 0.5 MG/0.5 ML Syringe IVPUSH PRN (09:06)
[2023-05-16] MEDS ORDERED: fentaNYL 100 MCG/2 ML SDV IVPUSH PRN (09:06)
[2023-05-16] MEDS ORDERED: ceFAZolin 2 GM Vial ONE (09:55)
[2023-05-16] MEDS ORDERED: Dexamethasone 4 MG/ML 5 ML MDV ONE (09:55)
[2023-05-16] MEDS ORDERED: Metoclopramide 10 MG/2 ML SDV ONE (09:55)
[2023-05-16] MEDS ORDERED: Acetaminophen/HYDROcodone 325-5 MG Tab PO PRN (10:57)
[2023-05-16 12:04] VITALS: BP 142/84; PULSE 70
== END 2023-05-16 11:35 | disposition home or self-care (01) ==
LOC: JD.SDS 08:00
PROVIDERS: ATTEND Orthopaedic Surgery
DX: G56.21 Lesion of ulnar nerve, right upper limb (principal); M25.521 Pain in right elbow; E78.5 Hyperlipidemia, unspecified; G25.0 Essential tremor; R00.1 Bradycardia, unspecified; N40.1 Benign prostatic hyperplasia with lower urinary tract symptoms; Z79.899 Other long term (current) drug therapy; Z91.018 Allergy to other foods
CPT/HCPCS: 64718; A9270; J0690; J1100; J2250; J2704; J2765; J3010; J3490; J7120; 01710; 99100